=== PATIENT | male | born 1970 | race Caucasian/White ===

== ENCOUNTER 2021-09-01 21:57 | Observation (INO) | payer OTHER, SELFPAY ==
[2021-09-01 22:01] VITALS: BMI 22.8
[2021-09-01 22:14] VITALS: BP 132/73; PULSE 97; RESP 18; TEMP 36.9; O2SAT 93
[2021-09-01 22:16] VITALS: BP 132/73; PULSE 100; RESP 18; TEMP 36.9; O2SAT 92
--- NOTE | 2021-09-01 22:18 | P.HP_ITS ---
Providers/Chief Complaint Admitting Physician: Jay Rivera MD Chief Complaint: SI History of Present Illness The patient is a 51-year-old male who was transferred from [facility] after initially presenting there on September 01, 2021 with chief [place] abdominal pain.? He states abdominal pain started possibly 2 AM on September 01, 2021 and has had awakened him from sleep.? He indicates that the pain localized to the subxiphoid area with radiation to his back.? He describes the pain as a dullness and it has been constant since the time of onset.? As worst rated 10 out of 10 and currently rates 2 out of 10.? He states that he took Pepto-Bismol at home which did not improve the pain.? He states that he developed diarrhea approximate 1 week prior to hospitalization however this resolved proximally 48- 72 hours prior to hospitalization.? He denies melena or hematochezia.? He admits to [facility].? He denies frequent NSAID use.? He presents for further evaluation Review of Systems General: Reports: 10 or more systems reviewed and unremarkable except in HPI and below Medications/Allergies Home Medications Medication Instructions Recorded Confirmed Last Taken Type hawffeb-besk-ijbrt-oreg-capryl DAILY 09/01/21 09/01/21 History Allergies Allergy/AdvReac Type Severity Reaction Status Date / Time ciprofloxacin [From Cipro] Allergy Unknown Verified 09/01/21 22:19 hydromorphone [From Dilaudid] Allergy ADR-Halluci Verified 09/01/21 22:19 nating morphine Allergy ALGY-Rash Verified 09/01/21 22:19 Vitals/I&O/Wt Weight last 48 hrs Weight 76.34 kg Physical Exam Narrative: General: -Alert -No acute distress -No dyspnea -No tachypnea Head: -Atraumatic -Normocephalic Eyes: -Pupils equally round and reactive to light and accommodation -Extraocular muscles intact Neurological: -Cranial nerves II-XII intact Neck: -No jugular venous distention -No thyromegaly -No cervical lymphadenopathy Heart: -Regular rate -Regular rhythm -No murmurs -No gallops -No rubs Lungs: -No wheeze -No rhonchi -No rales ? Abdomen: -Normal bowel sounds in all four quadrants -No rebound -No guarding -No tenderness Extremities: -2/4 pulse in all four extremities -No clubbing -No cyanosis -No edema -No calf tenderness present bilaterally -Negative Claire?s sign bilaterally Musculoskeletal: -5/5 bilateral upper extremity strength -5/5 bilateral lower extremity strength -Sensorium of bilateral upper extremities are equal and intact -Sensorium of bilateral lower extremities are equal and intact ? Additional Details / Additional Findings / Exceptions / Miscellaneous: A&P Assessment and plan (1) Abdominal pain: Status: Acute Attestations Medical Necessity Statement*: anticipate length of stay is greater than 2 midnights for evaluation and treatment of his abdominal pain Coding Level of Care Code Acute Polisher Numeral for Chg Fwd Diagnoses Abdominal pain R10.9
[2021-09-01] MEDS: ondansetron 2 mg/ML SDV 2 mL 4 MG IVP (22:34)
[2021-09-01] MEDS: sodium chloride 0.9% 1,000 ML 100 ML IV (22:36)
[2021-09-01] MEDS: pantoprazole 40 mg SDV IVP (22:36)
[2021-09-01] MEDS: HYDROcodone-acetaminophen 5-325 mg Tablet 1 TAB PO (23:50)
[2021-09-01 23:51] VITALS: BP 134/90; PULSE 105; RESP 19; TEMP 37.2; O2SAT 94
[2021-09-02 04:00] VITALS: BP 142/85; PULSE 89; RESP 18; TEMP 37; O2SAT 95
[2021-09-02 05:06] LABS: Basophils % 0.3 %; Eosinophils % 0.1 %; Hematocrit 43.7 % (42.0-52.0); Hemoglobin 14.3 g/dL (11.7-16.6); Lymphocytes # 1.3 10^3/uL (0.8-4.8); Lymphocytes % 11.7 %; Mean Corpuscular HGB Conc 32.7 g/dL (30.0-36.0); Mean Corpuscular Hemoglobin 27.2 pg (28.0-34.0); Mean Corpuscular Volume 83.2 fl (80-94); Mean Platelet Volume 10.2 fL (7.4-10.4); Monocytes # 0.9 10^3/uL (0.2-0.9); Monocytes % 7.8 %; Neutrophils # 9.05 10^3/uL (1.8-7.7); Neutrophils % 79.7 %; Nucleated Red Blood Cells % 0 %; Platelet Count 326 10^3/cmm (130-400); Red Blood Count 5.25 10^6/uL (4.1-5.3); Red Cell Distribution Width 12.8 % (12.1-15.1); White Blood Count 11.4 10^3/uL (4.0-10.0)
[2021-09-02 05:33] LABS: Alanine Aminotransferase 38 U/L (0-41); Albumin Level 3.7 g/dL (3.5-5.2); Alkaline Phosphatase 65 IU/L (40-130); Aspartate Amino Transferase 15 U/L (0-40); Blood Urea Nitrogen 13 mg/dL (6-20); Calcium 8.4 mg/dL (8.5-10.5); Carbon Dioxide 23 mmol/L (22-29); Chloride 103 mmol/L (98-107); Ferritin 56 ng/mL (30-400); Globulin 2.4 g/dL (1.3-4.6); Glomerular Filtration Rate 79.4 mL/min (90-130); Glucose 139 mg/dL (65-115); Iron 42 ug/dL (59-158); Lipase 20 U/L (13-60); Osmolality Calculated 284 mOsm/kg (285-295); Percent Saturation 16.4 % (20-50); Sodium 136 mmol/L (136-145); Total Bilirubin 0.5 mg/dL (0.15-1.2); Total Iron Binding Capacity 256 mcg/dl; Total Protein 6.1 g/dL (6.6-8.7); Unsaturated Iron Binding 214 ug/dL (112-347)
[2021-09-02 05:58] LABS: Estmated Average Glucose 154
--- NOTE | 2021-09-02 05:59 | PC.NURSE ---
Patient leaving the floor via wheelchair accompanied by Dante HUIZAR for nuclear med scan.
--- NOTE | 2021-09-02 08:20 | PC.NURSE ---
Patient returned Hydascan at this time.
[2021-09-02] MEDS: HYDROcodone-acetaminophen 5-325 mg Tablet 1 TAB PO ×2 (09:07→16:19)
[2021-09-02] MEDS: sennosides 8.6 mg Tablet PO ×2 (09:09→17:17)
[2021-09-02] MEDS: docusate sodium 100 mg Capsule PO ×2 (09:09→17:17)
[2021-09-02] MEDS: piperacillin-tazobactam 3.375 GM in sodium chloride 0.9% (plus) 50 ML IV ×2 (11:11→19:30)
[2021-09-02] MEDS: pantoprazole 40 mg SDV IVP ×2 (11:11→21:28)
[2021-09-02] MEDS: sodium chloride 0.9% 1,000 ML 100 ML IV ×2 (11:16→21:28)
--- NOTE | 2021-09-02 11:42 | P.PN_ITS ---
Subjective Subjective: Transferred overnight from [facility]. Seen today morning with family at bedside. Paperwork from outside hospital reviewed. Patient states he started having pain in the epigastric region radiating to back along with nausea at 2 AM yesterday. Prior to that he was having diarrhea for 1 week with settle down 2 days prior to abdominal pain. Currently states abdominal pain is better but still having occasional bouts. States nausea is better. Vitals/I&O/Wt Last Vital Signs Temp 98.6 F 09/02/21 04:00 Pulse 89 09/02/21 04:00 Resp 18 09/02/21 04:00 BP 142/85 09/02/21 04:00 Pulse Ox 95 09/02/21 04:00 09/01/21 09/02/21 09/02/21 22:59 06:59 14:59 Intake Total 935 / 935 195 / 195 Output Total 200 / 200 Balance 735 / 735 195 / 195 Weight last 48 hrs Weight 79.515 kg Weight 76.34 kg Physical Exam Narrative: General: No acute distress, AO x3 HEENT: PERRLA, pupils bilaterally equal and reactive Chest: Normal vesicular breath sounds, no added sounds, equal good air entry bilaterally CVS: S1-S2 regular, no murmurs, no tachycardia, no gallops, no rubs Abdomen: Soft, mild tenderness in right upper quadrant, epigastric region, guarding present, no rebound tenderness, no organomegaly, bowel sounds present Neuro: No focal deficits, no facial deformity, AO x3, power 5/5 in all limbs Data : 09/02/21 04:39 09/02/21 04:39 A&P Assessment and plan (1) Biliary colic: Status: Acute (2) Obstruction of cystic duct: Status: Acute (3) History of appendectomy: Status: Inactive (4) Diarrhea: Status: Acute Plan Acute abdominal pain: Biliary in nature. CT abdomen pelvis, gallbladder ultrasound from outside hospital appreciated. HIDA scan shows cystic duct obstruction without acute cholecystitis, gallbladder not visualized even after 120 minutes. Case discussed with Dr. Alvarez from surgery. Clear liquid diet. Protonix daily, Zofran as needed. Pain management. Monitor for next 24 hours for resolution of symptoms. If no resolution in symptoms most likely patient will need cholecystectomy. IV hydration with normal saline 100 cc/h. Less chances of cholecystitis. No leukocytosis. HIDA scan negative for cholecystitis. For now start patient on Zosyn. Will de-escalate rapidly depending on clinical picture within next 24 hours. Care discussed in detail with patient and patient's family at bedside. Both verbalized understanding. All questions were answered. Full code. Clear liquid diet. N.p.o. after midnight. Protonix will suffice for PUD prophylaxis. Low probability of VTE. SCDs. Attestations Medical Necessity Statement*: Requires further hospitalization for management of biliary abdominal pain secondary to cystic duct obstruction Time Spent in Patient Care: Greater than 35 minutes Coding Level of Care Code Acute [facility] Fwd Diagnoses Biliary colic K80.50 Obstruction of cystic duct K82.0 History of appendectomy Z90.49 Diarrhea R19.7
[2021-09-02 12:00] VITALS: BP 134/72; PULSE 87; RESP 18; TEMP 36.7; O2SAT 97
[2021-09-02 12:30] LABS: Add Urine Microscopic? NO; Charge for UA Resulting for Rev
[2021-09-02 12:49] LABS: Bilirubin Urine Neg (Negative); Blood Urine Neg (Negative); Glucose Urine UA Norm (Normal); Ketones Urine Negative (Negative); Nitrate Urine Negative (Negative); Protein Urine Neg (Negative); Specific Gravity, Urine 1.005 (1.005-1.030); Urine Appearance Clear (CLEAR); Urine Color Yellow (Yellow); pH Urine 7 (5-7)
[2021-09-02 12:50] LABS: Leukocyte Esterase Urine Negative (Negative); Urobilinogen Urine Norm (Negative)
[2021-09-02] MEDS: TRAMadol 50 mg Tablet PO (12:52)
--- NOTE | 2021-09-02 13:02 | PC.NURSE ---
Patient has eaten all his full liquid lunch tray which included Tomato Soup and denies any nausea or vomiting at this time.
[2021-09-02 16:00] VITALS: BP 127/79; PULSE 96; RESP 16; TEMP 36.9; O2SAT 95
--- NOTE | 2021-09-02 16:31 | PC.NURSE ---
Patient refused Trop blood draw at this time. notified
--- NOTE | 2021-09-02 16:39 | PC.NURSE ---
Patient refused his EKG at this time. Notified
[2021-09-02 17:07] LABS: Troponin T (5th) Once 6 ng/L (0-15)
--- NOTE | 2021-09-02 18:34 | PC.NURSE ---
Report to Kelly LÓPEZ.
[2021-09-02 20:00] VITALS: BP 138/89; PULSE 92; RESP 19; TEMP 37; O2SAT 95
--- NOTE | 2021-09-02 22:16 | NM_ITS ---
WS: [id number] NUCLEAR MEDICINE HIDA SCAN HISTORY: HIDA scan: dx: GB sludge COMPARISON: None available. TECHNIQUE: The patient was intravenously injected with 8.2 mCi of TC99m Mebrofenin. Immediate imaging over the right upper quadrant was followed by 5 minute image and additional images for a total of 12 0 minutes. Normal uptake of radiotracer throughout the liver. Gallbladder activity is never identified. At 120 minutes no activity within the gallbladder. The comm on bile duct is patent. Activity within the small bowel by 15 minutes. No gallbladder ejection fraction performed. NM/NM hepatobiliary w phar* [id number] IMPRESSION: 1. Gallbladder not identified at 120 minutes. 2. Findings suggestive of cystic duct obstruction. This may be acute or chroni c. There is no hyperemia in the gallbladder bed to suggest acute cholecystitis. Gallbladder also may not fill if there is a markedly distended gallbladder and the patient has had prolonged fasting. 3. Patent common bile duct.
[2021-09-03] VITALS: BP 149/89; PULSE 86; RESP 19; TEMP 37.1; O2SAT 93
[2021-09-03] MEDS: piperacillin-tazobactam 3.375 GM in sodium chloride 0.9% (plus) 50 ML IV ×2 (03:27→10:20)
[2021-09-03 04:00] VITALS: BP 130/90; PULSE 83; RESP 18; TEMP 36.6; O2SAT 95
[2021-09-03 04:13] LABS: Basophils % 0.3 %; Eosinophils # 0.2 10^3/uL (0.0-0.8); Eosinophils % 2.3 %; Hematocrit 42.4 % (42.0-52.0); Hemoglobin 13.8 g/dL (11.7-16.6); Lymphocytes # 1.8 10^3/uL (0.8-4.8); Lymphocytes % 19.9 %; Mean Corpuscular HGB Conc 32.5 g/dL (30.0-36.0); Mean Corpuscular Hemoglobin 26.5 pg (28.0-34.0); Mean Corpuscular Volume 81.5 fl (80-94); Mean Platelet Volume 10.2 fL (7.4-10.4); Monocytes # 0.8 10^3/uL (0.2-0.9); Monocytes % 8.5 %; Neutrophils # 6.03 10^3/uL (1.8-7.7); Neutrophils % 68.3 %; Nucleated Red Blood Cells % 0 %; Platelet Count 316 10^3/cmm (130-400); Red Cell Distribution Width 12.5 % (12.1-15.1); White Blood Count 8.8 10^3/uL (4.0-10.0)
[2021-09-03 04:32] LABS: Alanine Aminotransferase 30 U/L (0-41); Albumin Level 3.6 g/dL (3.5-5.2); Alkaline Phosphatase 59 IU/L (40-130); Anion Gap 13.8 (5-19); Aspartate Amino Transferase 11 U/L (0-40); Blood Urea Nitrogen 9 mg/dL (6-20); Calcium 7.9 mg/dL (8.5-10.5); Carbon Dioxide 25 mmol/L (22-29); Chloride 102 mmol/L (98-107); Chol HDL Ratio 4.05 mg/dL (1.0-5.00); Cholesterol 162 mg/dL (0-200); Globulin 2.4 g/dL (1.3-4.6); Glomerular Filtration Rate 79.4 mL/min (90-130); Glucose 111 mg/dL (65-115); HDL Cholesterol 40 mg/dL (60-100); LDL Cholesterol Calculated 103 mg/dL (50-129); Osmolality Calculated 283 mOsm/kg (285-295); Potassium 3.8 mmol/L (3.5-5.1); Sodium 137 mmol/L (136-145); Total Bilirubin 0.6 mg/dL (0.15-1.2); Triglycerides 95 mg/dL (0-150); VLDL Cholestrol Calculation 19 mg/dL (0-30)
--- NOTE | 2021-09-03 05:19 | NUR.SHIFT ---
Rested in bed throughout shift. Up to bedside commode independently, continent of bladder, no bowel movement this shift. Patient states pain is better, that its manageable and denies the need for PRN pain medications, encouraged to inform staff if needs change, verbalized understanding. Reports what was a sharp pain in abdomen yesterday is now more of a dull discomfort. NPO since midnight for ultrasound prep. IV in left forearm infusing NS at 100 ml/hr and also used for iv antibiotics, intact.
--- NOTE | 2021-09-03 06:00 | USR_ITS ---
PROCEDURE INFORMATION: Exam: US Abdomen, Limited; Right Upper Quadrant Exam date and time: 09/03/2021 6:47 AM Age: 51 years old Clinical indication: Abdominal pain; Acute; Additional info: Billiary colic, cystic duct obs TECHNIQUE: Imaging protocol: US abdomen. Real time ultrasound with image documentation. Limited exam focused on the right upper quadrant. COMPARISON: No relevant prior studies available. FINDINGS: Liver: Increased echogenicity of the hepatic parenchyma. No masses. The liver measures up to 17.1 cm. Gallbladder: The gallbladder is mildly distended with multiple small stones positioned near the gallbladder neck. The gallbladder wall is mildly thickened. Positive sonographic Thompson's. Biliary ducts: The common bile duct measures up to 7 mm. No biliary dilation. Pancreas: Limited visualization of the pancreas. Visualized portions appear unremarkable. Right kidney: The right kidney measures up to 11.3 cm in length. No hydronephrosis. No masses. Aorta: The aorta appears within normal limits. Inferior vena cava: The IVC appears within normal limits. US/US liver [id number] IMPRESSION: 1. Findings are concerning for acute cholecystitis. 2. Hepatic steatosis.
--- NOTE | 2021-09-03 06:53 | PC.NURSE ---
ultrasound being done at bedside at this time
[2021-09-03 07:34] VITALS: BP 133/74; PULSE 73; RESP 16; TEMP 37.2; O2SAT 95
[2021-09-03] MEDS: sodium chloride 0.9% 1,000 ML 100 ML IV (07:40)
[2021-09-03] MEDS: pantoprazole 40 mg SDV IVP (07:42)
[2021-09-03] MEDS: docusate sodium 100 mg Capsule PO (07:42)
[2021-09-03] MEDS: sennosides 8.6 mg Tablet PO (07:42)
--- NOTE | 2021-09-03 08:30 | PM.CONSULT ---
Providers/Reason For Consult Consulting Physician/Specialty*: Joshua Alvarez MD Reason for Consult*: Abdominal pain Requesting Physician: Dr. Huston Attending Physician: Jovan Quinteros MD History of Present Illness History of Present Illness Mr.William Power Matta is a 51 year old male presents with history of upper abdominal pain particularly in epigastric area and little bit towards the right upper quadrant being referred to the back. For the past 6 days or so he went to an outside facility and he was transferred to our hospital where further work-up was done that showed WBC count of 11.4. That trended down to 8.8. With normal liver function test. Apparently the patient has been having ongoing chronic abdominal pain particularly to greasy food and he would encounter diarrhea and that happened about 6 days ago where he had this episode and since his symptoms got worse he pursue medical advice. A HIDA scan was done; 1.? Gallbladder not identified at 120 minutes. 2.? Findings suggestive of cystic duct obstruction. This may be acute or chronic. There is no hyperemia in the gallbladder bed to suggest acute cholecystitis. Gallbladder also may not fill if there is a markedly distended gallbladder and the patient has had prolonged fasting. 3.? Patent common bile duct. Per my request an ultrasound of the liver and gallbladder was repeated today and that showed; Liver: Increased echogenicity of the hepatic parenchyma. No masses. The liver measures up to 17.1 cm. Gallbladder: The gallbladder is mildly distended with multiple small stones positioned near the gallbladder neck. The gallbladder wall is mildly thickened. Positive sonographic Thompson's. Biliary ducts: The common bile duct measures up to 7 mm. No biliary dilation. Pancreas: Limited visualization of the pancreas. Visualized portions appear unremarkable. Right kidney: The right kidney measures up to 11.3 cm in length. No hydronephrosis. No masses. Aorta: The aorta appears within normal limits. Inferior vena cava: The IVC appears within normal limits. US/US liver [id number] IMPRESSION: 1. Findings are concerning for acute cholecystitis. 2. Hepatic steatosis. General surgery was consulted for further care and potential evaluation ? Review of Systems General: Reports: 10 or more systems reviewed and unremarkable except in HPI and below Medications/Allergies Home Medications Medication Instructions Recorded Confirmed Last Taken Type cetirizine 10 mg tablet (Zyrtec) 20 mg PO QAM 09/01/21 09/02/21 Unknown History Turmeric Curcumin 1 tab PO DAILY 09/02/21 09/02/21 Unknown History ibuprofen 200 mg tablet 600 mg PO Q6H PRN 09/02/21 09/02/21 Unknown History naproxen sodium 220 mg tablet 220 mg PO Q12H PRN 09/02/21 09/02/21 Unknown History (Aleve) olive leaf extract 250 mg capsule 250 mg PO QAM 09/02/21 09/02/21 Unknown History omeprazole magnesium 20 mg 20 - 40 mg PO QAM 09/02/21 09/02/21 Unknown History tablet,delayed release (Prilosec OTC) oregano oil 1,500 mg capsule 1,500 mg PO [facility] 09/02/21 09/02/21 Unknown History Allergies Allergy/AdvReac Type Severity Reaction Status Date / Time ciprofloxacin [From Cipro] Allergy Unknown Verified 09/03/21 09:55 hydromorphone [From Dilaudid] Allergy ADR-Halluci Verified 09/03/21 09:55 nating morphine Allergy ALGY-Rash Verified 09/03/21 09:55 Current Medications Generic Name Dose Route Start Last Admin Trade Name Freq PRN Reason Stop Dose Admin Hydrocodone Bitart/Acetaminophen 1 tab 09/02/21 10:31 09/02/21 16:19 Hydrocodone-Acetaminophen 5-325 Mg Tablet PO 1 tab Q6H PRN Administration MODERATE TO SEVERE PAIN Docusate Sodium 100 mg 09/02/21 09:00 09/03/21 07:42 Docusate Sodium 100 Mg Capsule PO 100 mg BID KATHIA Administration Sodium Chloride 1,000 mls @ 100 mls/hr 09/01/21 22:15 09/03/21 07:40 Sodium Chloride 0.9% IV 100 mls/hr .Q10H KATHIA Administration Piperacillin Sod/Tazobactam 50 mls @ 12.5 mls/hr 09/02/21 11:00 09/03/21 07:28 Sod 3.375 gm/ Sodium Chloride IV Infused Q8H KATHIA Infusion Protocol Ondansetron HCl 4 mg 09/01/21 22:14 09/01/21 22:34 Ondansetron 2 Mg/Ml Sdv 2 Ml IVP 4 mg Q8H PRN Administration vomiting, or N/V if npo Pantoprazole Sodium 40 mg 09/01/21 22:15 09/03/21 07:42 Pantoprazole 40 Mg Sdv IVP 40 mg Q12H KATHIA Administration Senna 8.6 mg 09/02/21 09:00 09/03/21 07:42 Sennosides 8.6 Mg Tablet PO 8.6 mg BID KATHIA Administration Tramadol HCl 50 mg 09/02/21 11:01 09/02/21 12:52 Tramadol 50 Mg Tablet PO 50 mg Q4H PRN Administration MODERATE PAIN PFSH Acute PFSH: Surgical History History of appendectomy History of colectomy History of colostomy History of colostomy reversal 2020 History of tonsillectomy Vitals/I&O/Wt Last Vital Signs Temp 99.0 F 09/03/21 07:34 Pulse 73 09/03/21 07:34 Resp 16 09/03/21 07:34 BP 133/74 09/03/21 07:34 Pulse Ox 95 09/03/21 07:34 09/02/21 09/03/21 09/03/21 22:59 06:59 14:59 Intake Total 2260 / 2705 530 / 3235 1050 / 1050 Output Total 950 / 1850 1300 / 3150 500 / 500 Balance 1310 / 855 -770 / 85 550 / 550 Weight last 48 hrs Weight 173 lb 14.4 oz Weight 175 lb 4.8 oz Weight 168 lb 4.8 oz Physical Exam Const: COMMON NORMALS: no acute distress and patient oriented x3 GENERAL APPEARANCE: cooperative ORIENTATION/CONSCIOUSNESS: Yes awake, Yes oriented to person, Yes oriented to place and Yes oriented to time HENMT: COMMON NORMALS: normocephalic HEAD & SCALP: normocephalic Eye: COMMON NORMALS: Equal, round and reactive pupils present and no scleral icterus PUPIL: Yes Equal, round and reactive pupils present Lymph: LYMPHATIC: no lymphadenopathy noted Chest: COMMONS NORMALS: normal inspection of the chest Resp: COMMON NORMALS: normal respiratory effort and clear to auscultation bilaterally AUSCULTATION: clear to auscultation bilaterally Cardio: COMMON NORMALS: S1 normal heart sound present and S2 normal heart sound present; negative for No murmurs present (Cardio) HEART SOUNDS: S1 normal heart sound present and S2 normal heart sound present GI: COMMON NORMALS: Soft to palpation; negative for No hepatosplenomegaly present INSPECTION: Yes normal to inspection PALPATION: Yes Soft to palpation, No Firmness to palpation present (GI), Yes Tenderness to palpation present (GI) Details: RUQ, No Guarding due to palpation present (GI), No Rigid due to palpation and No No hepatosplenomegaly present Neuro: COMMON NORMALS: patient oriented x3 SENSORIUM/ORIENTATION: Yes oriented to person, Yes oriented to place and Yes oriented to time Psych: COMMON NORMALS: mental status grossly normal Skin: COMMON NORMALS: no rashes or lesions noted GENERAL SKIN EXAM: no rashes or lesions noted Data : 09/03/21 03:45 09/03/21 03:45 A&P Assessment and plan (1) Acute cholecystitis due to biliary calculus: After thorough history physical examination and reviewing the chart and images with my personal interpretation of the ultrasound of the liver and gallbladder. I did discuss with the patient different options. 1-proceed with laparoscopic cholecystectomy possible open understanding that the patient had passed the safe window for surgical intervention which is usually within 48 to 72 hours. Patient has been giving symptoms for the past 6 days and in the presence of a fatty liver with the measurements of 17.3 cm there is always a higher chance of conversion to open in addition to potential higher chance of biliary injury. 2-conservative measures in the form of antibiotics and continue low-fat diet and plan to proceed with elective/interval cholecystectomy over the coming 4 to 6 weeks, understanding the potential need for rehospitalization and further intervention in the interim if symptoms got worse. 3-patient also was given the option to understand that he may end up by having cholecystostomy tube to drain the gallbladder for relief and will end up by interval cholecystectomy again in 4 to 6 weeks. All the options were given to the patient understanding that by choosing the interval cholecystectomy he will be placed on liquid protein diet for 10 days at least to downsize the volume of the liver for safer procedure. Patient and his were well educated about his current pathology and also about the fatty liver component in the presence of his caring nurse Glenna about the above options and also the information obtained from the HIDA scan and the ultrasound were shared with the patient and at the end of the clinical encounter patient decided that he would like to go with conservative measures and avoid surgery at the time being. Knowing that he may end up being discharged from the hospital and within the coming few days he can come back to the ER for worsening symptoms and with that regard my recommendation is to place a cholecystostomy tube, the more the patient is out from the acute index episode the higher chance of injury to the biliary system. Patient was given an appointment for follow-up. Meanwhile education was given to the patient regarding fatty liver and low-fat diet to avoid similar episodes. Assurance and education All questions have been answered and all concerns have been addressed to patient's satisfaction. Thank you for consulting general surgery to participate taking care Status: Acute Consult Attestations Medical Necessity Statement: Per admitting service Coding Level of Care Code Acute [facility] for [facility] Filiberto Diagnoses Acute cholecystitis due to biliary calculus K80.00
[2021-09-03] MEDS: TRAMadol 50 mg Tablet PO (10:19)
[2021-09-03 11:11] VITALS: BP 154/83; PULSE 79; RESP 16; TEMP 37; O2SAT 97
--- NOTE | 2021-09-03 11:19 | P.DS_ITS ---
Discharge Providers Date of Admission: 09/02/21 19:32 Date of Discharge: September 03, 2021 Attending Provider at Admission: Roby Thornton DO Attending Provider at Discharge: Jovan Quinteros MD Diagnoses at Discharge Discharge Diagnosis (1) Acute cholecystitis due to biliary calculus: Status: Acute Reason for Visit Reason for Visit: ABD Pain Hospital Course Hospital Course Mr.William Power Matta is a 51 year old male with no significant past medical history other than chronic abdominal pain and diarrhea for which he underwent colostomy and colectomy with reversal 1 year ago was transferred from [facility] where he presented at night prior for abdominal pain. On review of chart from documents at [facility] he underwent CT abdomen pelvis along with ultrasound of the gallbladder which showed distention of gallbladder without cholecystitis. There was concern for possible obstruction within need of HIDA scan for patient so he was transferred to [facility]. At presentation to the hospital patient was hemodynamically stable, complaining of epigastric bandlike pain radiating to back which started the night prior, acute in nature associated with nausea and multiple episodes of vomiting. Prior to this patient has been having diarrhea for a week which stopped 2 days ago. Patient underwent HIDA scan which is concerning for cystic duct obstruction without possibility of cholecystitis and cholelithiasis. Surgery was consulted who requested another liver ultrasound which was concerning for a possible cholecystitis along with hepatomegaly consistent with fatty liver patient's diet was gradually advanced and he has been able to tolerate full liquid diet. Multiple treatment options including laparoscopic cholecystectomy, conservative measurements with antibiotics, interval cholecystectomy was discussed by surgeon in detail with patient and his family. Family for now agreed for interval cholecystectomy with a follow-up as an outpatient with surgical team. He has been discharged in hemodynamically stable condition on oral Augmentin for next 1 week with advised to follow-up with surgery as directed. Diet is to be taken as per surgical recommendations. Physical Exam Narrative: General: No acute distress, AO x3 HEENT: PERRLA, pupils bilaterally equal and reactive Chest: Normal vesicular breath sounds, no added sounds, equal good air entry bilaterally CVS: S1-S2 regular, no murmurs, no tachycardia, no gallops, no rubs Abdomen: Soft, mild tenderness in right upper quadrant, epigastric region, guarding present, no rebound tenderness, no organomegaly, bowel sounds present Neuro: No focal deficits, no facial deformity, AO x3, power 5/5 in all limbs Discharge Data Studies Completed and Pending Completed Studies During Hospitalization Category Date Time Status NM hepatobiliary w phar* [id number] Routine Nuc Med 09/02/21 22:16 [place] liver [id number] Routine Ultrasound 09/03/21 06:00 Completed Pending at discharge Category Date Time Status Fecal Occult Blood [Immunochemical Fecal OCB] Routine Lab 09/01/21 22:16 Uncollected Radiology Impressions Hepatobiliary Scan Nuclear Medicine 09/02/21 22:16 IMPRESSION: 1. Gallbladder not identified at 120 minutes. 2. Findings suggestive of cystic duct obstruction. This may be acute or chronic. There is no hyperemia in the gallbladder bed to suggest acute cholecystitis. Gallbladder also may not fill if there is a markedly distended gallbladder and the patient has had prolonged fasting. 3. Patent common bile duct. Liver Ultrasound 09/03/21 06:00 IMPRESSION: 1. Findings are concerning for acute cholecystitis. 2. Hepatic steatosis. Laboratory Results WBC 8.8 10^3/uL (4.0-10.0) 09/03/21 03:45 RBC 5.20 10^6/uL (4.1-5.3) 09/03/21 03:45 Hgb 13.8 g/dL (11.7-16.6) 09/03/21 03:45 Hct 42.4 % (42.0-52.0) 09/03/21 03:45 MCV 81.5 fl (80-94) 09/03/21 03:45 MCH 26.5 pg (28.0-34.0) L 09/03/21 03:45 MCHC 32.5 g/dL (30.0-36.0) 09/03/21 03:45 RDW 12.5 % (12.1-15.1) 09/03/21 03:45 Plt Count 316 10^3/cmm (130-400) 09/03/21 03:45 MPV 10.2 fL (7.4-10.4) 09/03/21 03:45 Neut % (Auto) 68.3 % 09/03/21 03:45 Lymph % (Auto) 19.9 % 09/03/21 03:45 Rooks % (Auto) 8.5 % 09/03/21 03:45 Eos % (Auto) 2.3 % 09/03/21 03:45 Baso % (Auto) 0.3 % 09/03/21 03:45 Neut # (Auto) 6.03 10^3/uL (1.8-7.7) 09/03/21 03:45 Lymph # (Auto) 1.8 10^3/uL (0.8-4.8) 09/03/21 03:45 Rooks # (Auto) 0.8 10^3/uL (0.2-0.9) 09/03/21 03:45 Eos # (Auto) 0.2 10^3/uL (0.0-0.8) 09/03/21 03:45 Baso # (Auto) 0.0 10^3/uL (0.0-0.1) 09/03/21 03:45 Nucleated RBC % (auto) 0 % 09/03/21 03:45 Nucleated RBCs # 0.0 /100WBC 09/03/21 03:45 Sodium 137 mmol/L (136-145) 09/03/21 03:45 Potassium 3.8 mmol/L (3.5-5.1) 09/03/21 03:45 Chloride 102 mmol/L (98-107) 09/03/21 03:45 Carbon Dioxide 25 mmol/L (22-29) 09/03/21 03:45 Anion Gap 13.8 (5-19) 09/03/21 03:45 BUN 9 mg/dL (6-20) 09/03/21 03:45 Creatinine 1.0 mg/dL (0.7-1.2) 09/03/21 03:45 GFR Calculation 79.4 mL/min (90-130) L 09/03/21 03:45 Glucose 111 mg/dL (65-115) 09/03/21 03:45 Estimat Average Glucose 154 09/02/21 04:39 Hemoglobin A1c 7.0 % (4.0-6.0) H 09/02/21 04:39 Calculated Osmolality 283 mOsm/kg (285-295) L 09/03/21 03:45 Calcium 7.9 mg/dL (8.5-10.5) L 09/03/21 03:45 Iron 42 ug/dL (59-158) L 09/02/21 04:39 TIBC 256 mcg/dl 09/02/21 04:39 % Saturation 16.4 % (20-50) L 09/02/21 04:39 Unsat Iron Binding 214 ug/dL (112-347) 09/02/21 04:39 Ferritin 56 ng/mL (30-400) 09/02/21 04:39 Total Bilirubin 0.6 mg/dL (0.15-1.2) 09/03/21 03:45 AST 11 U/L (0-40) 09/03/21 03:45 ALT 30 U/L (0-41) 09/03/21 03:45 Alkaline Phosphatase 59 IU/L (40-130) 09/03/21 03:45 Troponin T Gen 5 ng/L 6 ng/L (0-15) 09/02/21 04:39 Total Protein 6.0 g/dL (6.6-8.7) L 09/03/21 03:45 Albumin 3.6 g/dL (3.5-5.2) 09/03/21 03:45 Globulin 2.4 g/dL (1.3-4.6) 09/03/21 03:45 Triglycerides 95 mg/dL (0-150) 09/03/21 03:45 Cholesterol 162 mg/dL (0-200) 09/03/21 03:45 LDL Cholesterol, Calc 103 mg/dL (50-129) 09/03/21 03:45 Total VLDL Cholesterol 19 mg/dL (0-30) 09/03/21 03:45 HDL Cholesterol 40 mg/dL (60-100) L 09/03/21 03:45 Cholesterol/HDL Ratio 4.05 mg/dL (1.0-5.00) 09/03/21 03:45 Lipase 20 U/L (13-60) 09/02/21 04:39 Urine Color Yellow (Yellow) 09/02/21 12:26 Urine Appearance Clear (CLEAR) 09/02/21 12:26 Urine pH 7 (5-7) 09/02/21 12:26 Ur Specific [place] 1.005 (1.005-1.030) 09/02/21 12:26 Urine Protein Neg (Negative) 09/02/21 12:26 Urine Glucose (UA) Norm (Normal) 09/02/21 12:26 Urine Ketones Negative (Negative) 09/02/21 12:26 Urine Blood Neg (Negative) 09/02/21 12:26 Urine Nitrate Negative (Negative) 09/02/21 12:26 Urine Bilirubin Neg (Negative) 09/02/21 12:26 Urine Urobilinogen Norm mg/dL (Negative) 09/02/21 12:26 Ur Leukocyte Esterase Negative (Negative) 09/02/21 12:26 Vitals Last Vital Signs Temp 98.6 F 09/03/21 11:11 Pulse 79 09/03/21 11:11 Resp 16 09/03/21 11:11 BP 154/83 09/03/21 11:11 Pulse Ox 97 09/03/21 11:11 Discharge Plan Discharge Patient Disposition: Home Condition: Stable Prescriptions: New Augmentin 500-125 mg tablet 1 tab PO Q12H Qty: 14 0RF Continued cetirizine [Zyrtec] 10 mg Tablet 20 mg PO QAM 0RF Aleve 220 mg Tablet 220 mg PO Q12H PRN (Reason: Pain) 0RF Prilosec OTC 20 mg Tablet,Delayed Release (Dr/Ec) 20 - 40 mg PO QAM 0RF oregano oil 1,500 mg Capsule 1,500 mg PO QAM 0RF olive leaf extract 250 mg Capsule 250 mg PO QAM 0RF Turmeric Curcumin 1 tab PO DAILY 0RF Changed ibuprofen 200 mg Tablet 400 mg PO Q8H PRN (Reason: Pain) Qty: 0 0RF Discharge Orders: Discharge Order (Routine); Ordered 09/03/21 Ordered By: Jovan Quinteros Referrals: Joshua Mccoy MD [Physician] - 2 weeks (Return to surgery office in 2-week PLEASE CA; FOR FOLLOW UP WITH DR MCCOY [phone]) Farhan Cardenas FNP [Nurse Practitioner] - 09/09/21 10:00 am (You have a hospital/new patient appointment on SundaySeptember 09 at 10:00 am. If you have any questions or need to reschedule please contact them at [phone].) Discharge Diet: Advance as tolerated Discharge Activity: Increase activity as tolerated Patient Instructions: [place] Diet - Adult, Amoxicillin/Clavulanate Potassium (By mouth), Cholecystitis (DC), Low Fat Diet (DC), Clear Liquid Diet (DC), Opioid Safety Activity Restrictions/Additional Instructions: Please educate patient about fatty liver, biliary pancreatitis as a complication of gallbladder stones and emphasis on low fat, low calorie and high protein diet. Discharge Attestations Time Spent in Discharge Care*: greater than 30 min Specific Discharge Activities: educating patient, educating and/or supporting family/caregiver, discussing with pcp/other providers, discussing with nurse outreach case manager/social workers/dc planners, documenting/other paperwork and evaluating patient/reviewing data Status at Discharge: Cognitive status at discharge: cognitively intact , Behavioral status at discharge: cooperative , Functional status at discharge: independent ambulation , Overall status at discharge: patient is back to baseline Quality Metrics Clinical Quality Measures [ No reported AMI, CVA or VTE this stay] Coding Level of Care Code Acute Chg DC note Diagnoses Acute cholecystitis due to biliary calculus K80.00
[2021-09-03 12:51] VITALS: BP 154/83; PULSE 79; RESP 16; TEMP 37; O2SAT 97
== END 2021-09-03 12:52 | disposition home or self-care (01) ==
PROVIDERS: Admitting Provider Internal Medicine; Visit Provider Student in an Organized Health Care Education/Training Program
DX: K80.00 Calculus of gallbladder with acute cholecystitis without obstruction (principal); K80.50 Calculus of bile duct without cholangitis or cholecystitis without obstruction; R19.7 Diarrhea, unspecified; Z90.49 Acquired absence of other specified parts of digestive tract; K82.0 Obstruction of gallbladder
CPT/HCPCS: 36415; 76705; 78227; 80053; 80061; 81003; 82728; 83036; 83540; 83550; 83690; 84484; 85025; A9537; C9113; G0378; G0379; J2405; J2543; J7030

== ENCOUNTER 2021-10-24 06:40 | Day surgery (SDC) | payer OTHER, SELFPAY ==
[2021-10-21 10:39] VITALS: BMI 29.8
[2021-10-24] VITALS (11 sets, daily range): BP systolic 121–151; BP diastolic 66–107; PULSE 63–91; RESP 16–18; TEMP 36.1–36.5; O2SAT 96–100
[2021-10-24] MEDS: sodium chloride 0.9% 1,000 ML 30 ML IV (07:22)
[2021-10-24] MEDS: acetaminophen 1,000 MG/100 ML PIGGYBACK 400 MG IV (07:24)
[2021-10-24] MEDS: heparin 5,000 unit/mL INJ 1 mL 2000 UNIT SUBCUT (07:26)
[2021-10-24] MEDS: scopolamine 1.5 Patch 1 PATCH TRANSDERMA (07:33)
--- NOTE | 2021-10-24 07:50 | ANES.PREANE2 ---
Pre-Anesthetic Assessment Height/Weight: Height 1.83 m Weight 99.79 kg Temp Pulse Resp BP Pulse Ox 97.6 F 74 18 138/90 98 10/24/21 07:02 10/24/21 07:02 10/24/21 07:02 10/24/21 07:02 10/24/21 07:02 Preop Diagnosis: Symptomatic cholelithiasis Operation Date: 10/24/21 08:05 Proposed Procedures p Laparoscopic Cholecystectomy 39286,K80.00(Not Applicable) - Joshua Alvarez MD Familial anesthetic complications: None Was Beta Madina taken within 24 hours: N/A Was Clonidine taken within 24 hours: N/A Last intake: Intake Last Liquid Date 10/23/21 Last Liquid Time 21:00 Last Solid Date 10/23/21 Last Solid Time 12:30 Social No alcohol and No tobacco Exam alert, oriented x 3, clear to auscultation bilaterally and regular rate & rhythm Airway Submandibular: within normal limits Cervical ROM: within normal limits Mallampati: Class II Dentition: chipped GI Gastroesophageal Reflux Disease cholectomy/colostomy reversal in past Neuropsych PTSD Anesthetic Plan ASA status: 2 Anesthesia: General Medications/Allergies Home Medications Medication Instructions Recorded Confirmed Last Taken Type cetirizine 10 mg tablet (Zyrtec) 20 mg PO QAM 09/01/21 10/21/21 10/23/21 History Turmeric Curcumin 1 tab PO DAILY 09/02/21 10/21/21 10/23/21 History naproxen sodium 220 mg tablet 220 mg PO Q12H PRN 09/02/21 10/21/21 10/23/21 History (Aleve) olive leaf extract 250 mg capsule 250 mg PO QAM 09/02/21 10/21/21 10/23/21 History omeprazole magnesium 20 mg 20 - 40 mg PO QAM 09/02/21 10/21/21 10/23/21 History tablet,delayed release (Prilosec OTC) oregano oil 1,500 mg capsule 1,500 mg PO QAM 09/02/21 10/21/21 10/23/21 History ibuprofen 200 mg tablet 400 mg PO Q8H PRN #0 tab 09/03/21 10/21/21 10/23/21 Rx Allergies Allergy/AdvReac Type Severity Reaction Status Date / Time ciprofloxacin [From Cipro] Allergy Unknown Verified 10/21/21 10:37 hydromorphone [From Dilaudid] Allergy ADR-Halluci Verified 10/21/21 10:37 nating morphine Allergy ALGY-Rash Verified 10/21/21 10:37 Current Medications Generic Name Dose Route Start Last Admin Trade Name Freq PRN Reason Stop Dose Admin Sodium Chloride 1,000 mls @ 30 mls/hr 10/24/21 07:00 10/24/21 07:22 Sodium Chloride 0.9% IV 10/25/21 06:59 30 mls/hr .Q24H KATHIA Administration PFSH Anesthesia Medical History Diarrhea Surgical History History of appendectomy History of colectomy History of colostomy History of colostomy reversal 2020 History of tonsillectomy Social History Smoking and tobacco status: current every day smoker (nicotine pouches) Data Anesthesia Cardiac Studies: No Data to Display
--- NOTE | 2021-10-24 07:58 | W.PM.OPSUD ---
Surgery/Procedure H&P Update DATE OF PROCEDURE: October 24, 2021 DATE H&P PERFORMED: 09/28/21 H&P UPDATE INFORMATION: I have reviewed H&P completed within last 30 days, I have examined patient prior to procedure and Changes to prior documentation as noted here (Patient lost 6 pounds) PREOP DIAGNOSIS: Symptomatic cholelithiasis PRIMARY INDICATION FOR PROCEDURE: The same PLANNED PROCEDURE: Operation Date: 10/24/21 08:05 Proposed Procedures p Laparoscopic Cholecystectomy 53924,K80.00(Not Applicable) - Joshua Alvarez MD
[2021-10-24] MEDS: ampicillin-sulbactam 3 GM in sodium chloride 0.9% (plus) 50 ML IV (08:22)
[2021-10-24] MEDS: lidocaine 2% INJ 20 mL INJECTION (08:56)
--- NOTE | 2021-10-24 09:39 | P.OP_ITS ---
Operative Report Date of procedure: October 24, 2021 Pre-op diagnosis: Preop Diagnosis Symptomatic cholelithiasis Post-op diagnosis: Acute on top of chronic calculus cholecystitis Post-op findings: Intra abdominal adhesions towards the lower midline from previous surgery Omental adhesions encasing the gallbladder Procedure done: Laparoscopic cholecystectomy Specimens removed/disposition: Gallbladder and contents Surgeon: Joshua Alvarez MD Manager Software: Surgical abelardo Simmons Circulating nurse [place] Anesthesia: General (CARMEN Zuñiga) Estimated blood loss (mL): 5 IV fluids (mL): 1,000 Procedure: Patient was identified in the holding area and taken back to the operative suite, placed in supine position intubated by anesthesia . Time-out was done verifying the patient's name/date of /planned procedure and destination after the procedure, all were in agreement. SCDs confirmed to be functioning, preoperative antibiotics administered per protocol, and beta agus protocol was confirmed. Patient was appropriately secured to the table, footboard was applied to the OR table, before prep and drape anesthesia was asked to tilt the table back and forth to make sure that the patient is appropriately secured and she was. Prep and drape of the abdomen was done under the usual sterile technique, I started from the right upper quadrant by 5 mm Optiview using a 5 mm. 0 scope scope. Gas insufflation high flow.The scope was then switched to a 30 degree angled 5 mm scope. safe entrance to the abdominal cavity was achieved. As patient did have extensive scarring towards the midline from previous colon surgery.I have avoided starting the index trocar at the supraumbilical area concerning from the extensive scarring. Following that under direct visua lization I introduced Velez trocar through right paramedian transverse incision about 2 inches from the umbilicus. With safe entry into the abdominal cavity. Following that an epigastric 5 mm balloontipped trocar was inserted followed by a far right lateral 5 mm trocar. Lidocaine 2% was injected at the incision site Gallbladder showed chronic cholecystitis and Fatty Liver omental adhesions that was taken down. Patient was then positioned in the head up and tilted to the left. Ratcheted forceps were introduced into the lateral most 5mm port and was applied unto the fundus of the gallbladder cephalad and using Bullet forceps the infundibulum of the gallbladder was retracted laterally. Using [place] forceps then L-hook cautery to dissect the peritoneum overlying the Calot's triangle which was then opened medially and laterally until the cystic duct and the cystic artery were skeletonized. Dissection was carried along the body of the gallbladder and after ensuring critical view of safety was identfied. Cystic duct and cystic artery where seen connected to the gallbladder. Clips were applied on the cystic duct towards the common bile duct 1 towards the gallbladder then divided is in sharp scissors, 2 clips were then applied onto the cystic artery and 1 towards the gallbladder and divided by sharp scissors. Dissection was then carried along of the gallbladder from the gallbladder fossa using cautery as well as sharp dissection with heat energy. The gallbladder then was dissected out from the gallbladder fossa totally , cholecystectomy was then achieved and was placed in an Endo Catch bag and then retrieved from the Velez trocar site under direct visualization using a 5 mm 30? scope through the epigastric trocar, specimen was then passed to the circulating nurse to go for permanent pathology,irrigation and hemostasis was done to the gallbladder fossa after hemostasis was secured, final survey laparoscopy was done that showed no injuries. Suction irrigation was obtained. The right paraumbilical fascial defect was then closed using interrupted number one PDS sutures using a fascial closure device ;Elmer Johnson under direct visualization,following that Gas was allowed to deflate,Trocars were then taken out under direct vision there was no evidence of bleeding.Specimen was passed to the circulating nurse for permanent pathology. No drains were placed and the paraumbilical incision as well as all trocar sites were closed by 3/0 Vicryl followed by Skin closure. Dressing was then applied and the patient patient got extubated and was taken to recovery area in a stable condition. Count of sponges,needles and instruments were completed at the end of the procedure I was present for the whole entire procedure.
[2021-10-24] MEDS: fentaNYL 50 mcg/mL INJ 2mL IVP (10:05)
[2021-10-24] MEDS: HYDROcodone-acetaminophen 5-325 mg Tablet 1 TAB PO (10:58)
--- NOTE | 2021-10-24 14:08 | ANE.PACU2 ---
Inpatient post-anesthesia follow up: Airway intact: Yes Vital signs: Temperature 97 F Pulse Rate 74 Respiratory Rate 18 Blood Pressure 140/96 Pulse Oximetry 99 Oxygen Delivery Me thod Room Air Oxygen Flow Rate 5 Fraction of Inspir ed Oxygen Hydration adequate: Yes Nausea and vomiting: No Pain level: 3 Mental status: Baseline
== END 2021-10-24 11:44 | disposition home or self-care (01) ==
PROVIDERS: Visit Provider Surgery
PROC: 0FT44ZZ Resection of Gallbladder, Percutaneous Endoscopic Approach (ICD-10-PCS; CPT 47562; principal; 2021-10-24 07:55)
DX: K80.10 Calculus of gallbladder with chronic cholecystitis without obstruction (principal); K66.0 Peritoneal adhesions (postprocedural) (postinfection); K21.9 Gastro-esophageal reflux disease without esophagitis; F17.290 Nicotine dependence, other tobacco product, uncomplicated
CPT/HCPCS: 47562; 88304; J0295; J1100; J1644; J2250; J2405; J2704; J3010; J3490; J7030

== ENCOUNTER 2021-12-21 07:25 | Day surgery (SDC) | payer OTHER, SELFPAY ==
[2021-12-21 08:18] VITALS: BP 120/75; PULSE 67; RESP 16; TEMP 36.3; O2SAT 97; BMI 29.1
[2021-12-21] MEDS: sodium chloride 0.9% 1,000 ML 30 ML IV (08:21)
--- NOTE | 2021-12-21 09:03 | P.HP_ITS ---
Providers/Chief Complaint Chief Complaint: Abdominal pain History of Present Illness Tone Matta is a 51 year old male here for EGD Medications/Allergies Home Medications Medication Instructions Recorded Confirmed Last Taken Type cetirizine 10 mg tablet (Zyrtec) 20 mg PO QAM 09/01/21 12/20/21 12/20/21 History Turmeric Curcumin 1 tab PO DAILY 09/02/21 12/20/21 12/20/21 History naproxen sodium 220 mg tablet 220 mg PO Q12H PRN Pain 09/02/21 12/20/21 12/20/21 History (Aleve) olive leaf extract 250 mg capsule 250 mg PO QAM 09/02/21 12/20/21 12/20/21 History omeprazole magnesium 20 mg 20 - 40 mg PO QAM 09/02/21 12/20/21 12/20/21 History tablet,delayed release (Prilosec OTC) oregano oil 1,500 mg capsule 1,500 mg PO QAM 09/02/21 12/20/21 12/20/21 History ibuprofen 200 mg tablet 400 mg PO Q8H PRN Pain #0 tabs 09/03/21 12/20/21 12/20/21 Rx Allergies Allergy/AdvReac Type Severity Reaction Status Date / Time ciprofloxacin [From Cipro] Allergy Unknown Verified 11/04/21 09:57 hydromorphone [From Dilaudid] Allergy ADR-Halluci Verified 11/04/21 09:57 nating morphine Allergy ALGY-Rash Verified 11/04/21 09:57 PFSH Acute PFSH: Medical History Diarrhea GERD (gastroesophageal reflux disease) Surgical History History of appendectomy History of colectomy History of colostomy History of colostomy reversal 2020 History of esophagogastroduodenoscopy (EGD) 2020 History of tonsillectomy Hx laparoscopic cholecystectomy Hx of colonoscopy 2020 Social History Smoking and tobacco status: current every day smoker (nicotine pouches) Vitals/I&O/Wt Last Vital Signs Temp 97.4 F L 12/21/21 08:18 Pulse 67 12/21/21 08:18 Resp 16 12/21/21 08:18 BP 120/75 12/21/21 08:18 Pulse Ox 97 12/21/21 08:18 O2 Del Method 12/21/21 08:18 Weight last 48 hrs Weight 215 lb A&P Assessment and plan (1) Abdominal pain: Status: Acute Plan EGD Attestations Medical Necessity Statement*: Will go home Coding Level of Care Code Acute Baseball Pitcher for Chg Fwd Diagnoses Abdominal pain R10.9
--- NOTE | 2021-12-21 10:33 | ANES.PREANE2 ---
Pre-Anesthetic Assessment Height/Weight: Height 1.83 m Weight 97.522 kg Temp Pulse Resp BP Pulse Ox O2 Del Method 97.4 F L 67 16 120/75 97 12/21/21 08:18 12/21/21 08:18 12/21/21 08:18 12/21/21 08:18 12/21/21 08:18 12/21/21 08:18 Preop Diagnosis: Symptomatic cholelithiasis Operation Date: 12/21/21 09:45 Proposed Procedures p EGD 45400,K21.9(Not Applicable) - Jagdeep Caldwell DO Familial anesthetic complications: none Was Beta Madina taken within 24 hours: N/A Was Clonidine taken within 24 hours: N/A Last intake: Intake Last Liquid Date 12/20/21 Last Liquid Time 22:00 Last Solid Date 12/20/21 Last Solid Time 22:00 Social No alcohol and No tobacco Exam alert, oriented x 3, clear to auscultation bilaterally and regular rate & rhythm Airway Submandibular: within normal limits Cervical ROM: within normal limits Mallampati: Class II Dentition: full GI Gastroesophageal Reflux Disease Anesthetic Plan ASA status: 2 Anesthesia: MAC Medications/Allergies Home Medications Medication Instructions Recorded Confirmed Last Taken Type cetirizine 10 mg tablet (Zyrtec) 20 mg PO QAM 09/01/21 12/20/21 12/20/21 History Turmeric Curcumin 1 tab PO DAILY 09/02/21 12/20/21 12/20/21 History naproxen sodium 220 mg tablet 220 mg PO Q12H PRN Pain 09/02/21 12/20/21 12/20/21 History (Aleve) olive leaf extract 250 mg capsule 250 mg PO QAM 09/02/21 12/20/21 12/20/21 History omeprazole magnesium 20 mg 20 - 40 mg PO QAM 09/02/21 12/20/21 12/20/21 History tablet,delayed release (Prilosec OTC) oregano oil 1,500 mg capsule 1,500 mg PO QAM 09/02/21 12/20/21 12/20/21 History ibuprofen 200 mg tablet 400 mg PO Q8H PRN Pain #0 tabs 09/03/21 12/20/21 12/20/21 Rx Allergies Allergy/AdvReac Type Severity Reaction Status Date / Time ciprofloxacin [From Cipro] Allergy Unknown Verified 11/04/21 09:57 hydromorphone [From Dilaudid] Allergy ADR-Halluci Verified 11/04/21 09:57 nating morphine Allergy ALGY-Rash Verified 11/04/21 09:57 Current Medications Generic Name Dose Route Start Last Admin Trade Name Freq PRN Reason Stop Dose Admin Sodium Chloride 1,000 mls @ 30 mls/hr 12/21/21 07:45 12/21/21 08:21 Sodium Chloride 0.9% IV 12/22/21 07:44 30 mls/hr .Q24H KATHIA Administration PFSH Anesthesia Medical History Diarrhea GERD (gastroesophageal reflux disease) Surgical History History of appendectomy History of colectomy History of colostomy History of colostomy reversal 2020 History of esophagogastroduodenoscopy (EGD) 2020 History of tonsillectomy Hx laparoscopic cholecystectomy Hx of colonoscopy 2020 Social History Smoking and tobacco status: current every day smoker (nicotine pouches) Data Anesthesia Cardiac Studies: No Data to Display
[2021-12-21 11:00] VITALS: BP 127/90; PULSE 91; RESP 14; TEMP 36.3; O2SAT 97
[2021-12-21 11:10] VITALS: BP 129/90; PULSE 74; RESP 16; O2SAT 98
[2021-12-21 11:18] VITALS: BP 119/84; PULSE 86; RESP 16; O2SAT 95
--- NOTE | 2021-12-22 09:02 | ANE.PACU2 ---
Inpatient post-anesthesia follow up: Airway intact: Yes Vital signs: Temperature 97.4 F Pulse Rate 86 Respiratory Rate 16 Blood Pressure 119/84 Pulse Oximetry 95 Oxygen Delivery Me thod Nasal Cannula Oxygen Flow Rate 5 Fraction of Inspir ed Oxygen Hydration adequate: Yes Nausea and vomiting: No Pain level: 1 Mental status: Baseline
== END 2021-12-21 11:44 | disposition home or self-care (01) ==
PROVIDERS: Visit Provider Surgery
PROC: 0DJ08ZZ Inspection of Upper Intestinal Tract, Via Natural or Artificial Opening Endoscopic (ICD-10-PCS; CPT 43235; principal; 2021-12-21 09:45)
DX: K29.50 Unspecified chronic gastritis without bleeding (principal); K26.9 Duodenal ulcer, unspecified as acute or chronic, without hemorrhage or perforation; K29.80 Duodenitis without bleeding; K21.9 Gastro-esophageal reflux disease without esophagitis; F17.200 Nicotine dependence, unspecified, uncomplicated; Z88.5 Allergy status to narcotic agent
CPT/HCPCS: 43239; 88305; J2704; J7030